=== PATIENT | female | born 1980 | race Caucasian/White ===

== ENCOUNTER 2017-03-23 17:27 | Emergency (ER) | payer BC ==
[~2017-03-23] VITALS: Ht 157.5 cm; Wt 81.1 kg
[~2017-03-23 17:27] MED LIST: AUGMENTIN875 MG PO
[2017-03-23 18:15] VITALS: BP 119/78
== END 2017-03-23 18:17 | disposition home or self-care (01) ==
LOC: EME 17:27
DX: F10.129 Alcohol abuse with intoxication, unspecified (principal)
CPT/HCPCS: 99281; 99284